=== PATIENT | male | born 1955 | race Caucasian/White ===

== ENCOUNTER 2018-04-03 22:00 | Inpatient (IN) | payer OTHER, MEDICAID ==
[~2018-04-03] VITALS: Ht 168.9 cm; Wt 83.9 kg
[2018-04-04 00:28] LABS: BASOPHILS % 0.3 % (0.0-2.0); EOSINOPHILS % 2.5 % (0.0-5.0); HEMATOCRIT. 38.9 % (42.0-52.0); HEMOGLOBIN. 13.3 g/dL (14.0-18.0); LYMPHOCYTES % 20.6 % (20.0-50.0); MEAN CORPUSCULAR HEMOGLOBIN 28.1 pg (28.0-32.0); MEAN CORPUSCULAR VOLUME 82.1 fL (80.0-94.0); MEAN PLATELET VOLUME 8.9 fl (7.4-10.4); MONOCYTES % 3.9 % (2.0-8.0); NEUTROPHILS % 72.7 % (40.0-76.0); PLATELET 150 x1000/uL (130-400); RED BLOOD CELL COUNT 4.73 mill/uL (4.7-6.1); RED CELL DISTRIBUTION WIDTH 14.4 % (11.6-14.6)
[2018-04-04 00:35] LABS: CHLORIDE 108 mEq/L (98-107)
[2018-04-04 00:54] LABS: COLOR URINE YELLOW (YELLOW); KETONES URINE NEGATIVE (NEGATIVE); LEUKOCYTE ESTERASE URINE NEGATIVE (NEGATIVE); NITRITE URINE NEGATIVE (NEGATIVE); OCCULT BLOOD URINE NEGATIVE (NEGATIVE); PROTEIN URINE NEGATIVE (NEGATIVE); SPECIFIC GRAVITY URINE 1.004 (1.005-1.030); UROBILINOGEN URINE 0.2 E.U./dL (0.2-1.0)
[2018-04-04 02:05] LABS: CLARITY URINE CLEAR (CLEAR)
[2018-04-04 02:25] LABS: CREATINE KINASE 53 IU/L (39-308)
[2018-04-04] MEDS ORDERED: DEXTROSE 50% WATER 50ML SYRINGE IV ONE (03:45)
[2018-04-04 08:00] VITALS: BP 162/98
[2018-04-04] MEDS: INSULIN LISPRO 100 UNITS/ML SUBCUT SCH ×4 (08:20→20:55)
[2018-04-04] MEDS ORDERED: GUAIFENESIN 200MG/10ML SUGAR FREE UDC PO PRN (08:30)
[2018-04-04] MEDS ORDERED: MAGNESIUM/ALUMINUM HYDROXIDE/SIMETHICONE 30ML UDC PO PRN (08:30)
[2018-04-04] MEDS ORDERED: ACETAMINOPHEN 325MG TABLET PO PRN (08:30)
[2018-04-04] MEDS ORDERED: DIPHENHYDRAMINE 50MG/ML VIAL IV PRN (08:30)
[2018-04-04] MEDS ORDERED: NA PHOS,M-B/NA PHOS,DI-BA ENEMA 118ML PR PRN (08:30)
[2018-04-04] MEDS ORDERED: DEXTROSE 50% WATER 50ML SYRINGE IV PRN (08:30)
[2018-04-04] MEDS ORDERED: KETOROLAC 15MG/ML VIAL IV PRN (08:30)
[2018-04-04] MEDS ORDERED: CLONIDINE 0.1MG TABLET PO PRN (08:30)
[2018-04-04] MEDS ORDERED: ONDANSETRON HCL 4MG/2ML VIAL IV PRN (08:30)
[2018-04-04] MEDS ORDERED: LORAZEPAM 0.5MG TABLET PO PRN (08:30)
[2018-04-04] MEDS ORDERED: DOCUSATE SODIUM 100MG CAPSULE PO PRN (08:30)
[2018-04-04] MEDS ORDERED: IPRATROPIUM/ALBUTEROL 0.5-3(2.5)MG/3ML NEB INH PRN (08:30)
[2018-04-04 09:00] VITALS: BP 162/90
[2018-04-04] MEDS ORDERED: ONDANSETRON 4MG ODT PO PRN (09:30)
[2018-04-04] MEDS: LISINOPRIL 20MG TABLET PO SCH ×2 (09:46→20:55)
[2018-04-04] MEDS: FAMOTIDINE 20MG TABLET PO SCH ×2 (09:47→20:55)
[2018-04-04] MEDS: BLOOD SUGAR DIAGNOSTIC STRIP TEST SCH ×4 (09:47→20:55)
[2018-04-04] MEDS: ENOXAPARIN 40MG/0.4ML SYR SUBCUT SCH (09:47)
[2018-04-04] MEDS: ASPIRIN 325MG EC TABLET PO SCH (09:47)
[2018-04-04 12:00] VITALS: BP 148/81
[2018-04-04] MEDS ORDERED: METF500T6 MT (12:04)
[2018-04-04] MEDS ORDERED: PNEUMOCOCCAL 23-VAL P-SAC VAC 0.5 ML IM ONE (12:45)
[2018-04-04 16:00] VITALS: BP 127/76
[2018-04-04 17:01] LABS: CREATINE KINASE 56 IU/L (39-308)
[2018-04-04 20:00] VITALS: BP 164/97
[2018-04-04] MEDS ORDERED: ZOLPIDEM TARTRATE 5MG TABLET PO PRN (21:00)
[2018-04-05] VITALS: BP 127/75
[2018-04-05 00:32] LABS: CREATINE KINASE 47 IU/L (39-308)
[2018-04-05 00:33] LABS: CREATINE KINASE MB FRACTION 1.2 ng/mL (0.5-3.6)
[2018-04-05 04:00] VITALS: BP 153/93
[2018-04-05] MEDS: BLOOD SUGAR DIAGNOSTIC STRIP TEST SCH (07:01)
[2018-04-05] MEDS: INSULIN LISPRO 100 UNITS/ML SUBCUT SCH (07:01)
[2018-04-05 08:00] VITALS: BP 155/88
[2018-04-05] MEDS: FAMOTIDINE 20MG TABLET PO SCH (09:08)
[2018-04-05] MEDS: LISINOPRIL 20MG TABLET PO SCH (09:08)
[2018-04-05] MEDS: ASPIRIN 325MG EC TABLET PO SCH (09:08)
[2018-04-05] MEDS: ENOXAPARIN 40MG/0.4ML SYR SUBCUT SCH (09:09)
[2018-04-05 12:16] VITALS: BP 151/71
[2018-04-05 12:58] LABS: *AMPHETAMINES SCREEN URINE NEGATIVE (NEGATIVE); *BARBITURATES SCREEN URINE NEGATIVE (NEGATIVE); *BENZODIAZEPINES SCREEN URINE NEGATIVE (NEGATIVE); *COCAINE SCREEN URINE NEGATIVE (NEGATIVE); METHADONE URINE SCREEN NEGATIVE (NEGATIVE); OPIATES URINE SCREEN NEGATIVE (NEGATIVE)
[2018-04-05 12:59] LABS: CANNABINOID URINE SCREEN NEGATIVE (NEGATIVE); PHENCYCLIDINE URINE SCREEN NEGATIVE (NEGATIVE)
== END 2018-04-05 13:28 | disposition home or self-care (01) | DRG 420 ==
LOC: ER 04-04 00:07 → 5WST 04-04 03:54 → ENRESERV 04-04 07:21
PROVIDERS: ADMIT Internal Medicine; ATTEND Internal Medicine
DX: E11.649 Type 2 diabetes mellitus with hypoglycemia without coma (principal); G93.40 Encephalopathy, unspecified; I10 Essential (primary) hypertension; I25.10 Atherosclerotic heart disease of native coronary artery without angina pectoris; T38.3X5A Adverse effect of insulin and oral hypoglycemic [antidiabetic] drugs, initial encounter; Y92.89 Other specified places as the place of occurrence of the external cause; Z95.5 Presence of coronary angioplasty implant and graft; Z79.4 Long term (current) use of insulin
CPT/HCPCS: 36415; 70450; 71045; 80053; 80061; 80305; 81003; 82550; 82553; 82962; 83036; 83690; 84484; 85025; 90732; 93005; 93970; 96374; 99291; J1650

== ENCOUNTER 2018-12-09 10:57 | Emergency (ER) | payer MEDICAID ==
[~2018-12-09] VITALS: Ht 167.6 cm; Wt 87.0 kg
[~2018-12-09 10:57] MED LIST: METF-414 MT
[2018-12-09 12:22] LABS: BASOPHILS % 0.5 % (0.0-2.0); EOSINOPHILS % 2.9 % (0.0-5.0); HEMATOCRIT. 44.6 % (42.0-52.0); HEMOGLOBIN. 15.1 g/dL (14.0-18.0); LYMPHOCYTES % 19.6 % (20.0-50.0); MEAN CORPUSCULAR HEMOGLOBIN 28.3 pg (28.0-32.0); MEAN CORPUSCULAR VOLUME 83.7 fL (80.0-94.0); MEAN PLATELET VOLUME 9.3 fl (7.4-10.4); MONOCYTES % 4.5 % (2.0-8.0); NEUTROPHILS % 72.5 % (40.0-76.0); PLATELET 155 x1000/uL (130-400); RED BLOOD CELL COUNT 5.33 mill/uL (4.7-6.1); RED CELL DISTRIBUTION WIDTH 14.4 % (11.6-14.6)
[2018-12-09 12:26] LABS: CLARITY URINE CLEAR (CLEAR); COLOR URINE YELLOW (YELLOW); KETONES URINE NEGATIVE (NEGATIVE); LEUKOCYTE ESTERASE URINE NEGATIVE (NEGATIVE); NITRITE URINE NEGATIVE (NEGATIVE); OCCULT BLOOD URINE NEGATIVE (NEGATIVE); PROTEIN URINE NEGATIVE (NEGATIVE); SPECIFIC GRAVITY URINE 1.003 (1.005-1.030); UROBILINOGEN URINE 0.2 E.U./dL (0.2-1.0)
[2018-12-09 12:27] LABS: CHLORIDE 106 mEq/L (98-107)
[2018-12-09 12:28] LABS: INR 1.1; PROTHROMBIN TIME 11.1 sec (9.6-11.0)
[2018-12-09 13:31] VITALS: BP 139/94
== END 2018-12-09 13:47 | disposition home or self-care (01) ==
LOC: ER 10:57
DX: R20.0 Anesthesia of skin (principal); E11.9 Type 2 diabetes mellitus without complications; I10 Essential (primary) hypertension; Z79.84 Long term (current) use of oral hypoglycemic drugs
CPT/HCPCS: 36415; 71045; 82962; 84484; 93005; 99284